=== PATIENT | male | born 1965 | race Caucasian/White ===

== ENCOUNTER → 2023-12-22 | Outpatient (CLI) | payer OTHER, SELFPAY ==
--- NOTE | 2023-12-22 08:00 | MRI_ITS ---
STUDY: MR PROSTATE GLAND/ PELVIS WITH T WITHOUT CONTRAST REASON FOR EXAM: Male, 58 years old. elevated PSA psa 16 TECHNIQUE: Standardized fat and water weighted pulse sequences were obtained in all 3 orthogonal planes, pre-and post contrast administration. IV 17cc clariscan was administered for the contrast portion of the examination. COMPARISON: None. FINDINGS: Prostate gland volume/size: 5.23 x 4.14 x 4.81 cm, which is mildly enlarged. Anterior fibromuscular stroma: Normal Peripheral zone: Diffusely heterogeneous and nodular with small intermixed cysts, with a similar appearance in the central and transitional zones. Findings are compatible with BPH. Central zone: Diffusely heterogeneous and nodular with small intermixed cysts, with a similar appearance in the central and transitional zones. Findings are compatible with BPH. Transitional zone: Low signal nonenhancing nodule in the posterior and left side of the transitional zone measures 1.31 cm in diameter and demonstrates bright diffusion weighted signal and dark ADC map signal which is an intermediate/equivocal finding. BPH or nodular prostatitis can present in this manner as well as necrotic poorly vascularized malignancy. See image #16/32 series 10. Diffusely heterogeneous and nodular with small intermixed cysts, with a similar appearance in the central and transitional zones. Findings are compatible with BPH. Prostate capsule: Intact Seminal vesicles: Normal bilaterally Pelvic sidewall lymphadenopathy: No lymphadenopathy is present. Bony structures: Appearance of islands of red marrow in the anterior columns of the bilateral acetabular regions with some surrounding enhancement seen on the postcontrast study, see image 16/32 series 10. However on the standard images no lytic or blastic process is visualized. Correlation with nuclear medicine bone scan or PET/CT is recommended to determine if there is any early malignancy in these regions. The remaining bony structures are unremarkable. Normal urinary bladder. Normal visualized small intestine. Normal visualized colon. There is no pelvic fluid. There is no pelvic mass lesion or lymphadenopathy. Normal abdominal wall. MRI/Pelvis W/WO Contrast IMPRESSION: 1. Transitional zone: Low signal nonenhancing nodule in the posterior and left side of the transitional zone measures 1.31 cm in diameter and demonstrates bright diffusion weighted signal and dark ADC map signal which is an intermediate/equivocal finding. BPH or nodular prostatitis can present in this manner as well as necrotic poorly vascularized malignancy. See image #16/32 series 10. 2. PI-RADS 3: intermediate (the presence of clinically significant cancer is equivocal) 3. Correlation with prostate PET/CT exam or targeted biopsy of prostate tissue with definitive pathologic diagnosis is recommended. 4. Bony structures: Appearance of islands of red marrow in the anterior columns of the bilateral acetabular regions with some surrounding enhancement seen on the postcontrast study, see image 16/32 series 10. However on the standard images no lytic or blastic process is visualized. Correlation with nuclear medicine bone scan or PET/CT is recommended to determine if there is any early malignancy in these regions. The remaining bony structures are unremarkable. Reference information: Normal prostate tissue Benign prostatic hypertrophy cancer/tumor - low signal peripheral , transitional, and central zones malignancy appears as bright on DWI and low signal on ADC map Prostate imaging-reporting and data system (PI-RADS) PI-RADS 1: very low (clinically significant cancer is highly unlikely to be present) PI-RADS 2: low (clinically significant cancer is unlikely to be present) PI-RADS 3: intermediate (the presence of clinically significant cancer is equivocal) PI-RADS 4: high (clinically significant cancer is likely to be present) PI-RADS 5: very high (clinically significant cancer is highly likely to be present) PI-RADS X: component of exam technically inadequate or not performed Prostate malignancy distribution: Peripheral zone: 70-80% Transitional zone: 10-20% Central zone: 5% or less Electronically Signed: Jorden Waddell MD at 17:24 EDT ,
--- OUTSIDE RECORDS SUMMARY | 2023-12-22 08:19 | XMS RPT_ITS | CCD ---
Author Organization [facility] Care Team Providers Care Cleaning Maid Name Role Phone PARKER OBYLE MD Attending Unavailable PARKER BOYLE MD Admitting Unavailable PARKER BOYLE MD Primary Care Unavailable DINO MILTON MD Attending Unavailabl e DINO MILTON MD Admitting Unavailabl e PARKER BOYLE MD Consulting Unavailable DINO MILTON MD Primary Care Unavailabl e PROVIDER, UNKNOWN Consulting Unavailable PROVIDER, UNKNOWN Consulting Unavailable PROVIDER, UNKNOWN Consulting Unavailable PARKER BOYLE MD Attending Unavailable PARKER BOYLE MD Primary Care Unavailable PARKER BOYLE MD Admitting Unavailable PARKER BOYLE MD Consulting Unavailable PARKER BOYLE MD Attending Unavailable LATPARKER DE LA FUENTE MD Admitting Unavailable PARKER BOYLE MD Primary Care Unavailable PROVIDER, UNKNOWN Consulting Unavailable PROVIDER, UNKNOWN Consulting Unavailable PROVIDER, UNKNOWN Consulting Unavailable PARKER BOYLE MD Consulting Unavailable PARKER BOYLE MD Attending Unavailable PARKER BOYLE MD Primary Care Unavailable PARKER BOYLE MD Admitting Unavailable PROVIDER, UNKNOWN Consulting Unavailable PROVIDER, UNKNOWN Consulting Unavailable PROVIDER, UNKNOWN Consulting Unavailable PARKER BOYLE MD Attending Unavailable PARKER BOYLE MD Primary Care Unavailable PARKER BOYLE MD Admitting Unavailable MIGUELANGEL NELSON MD Consulting Unavailable PROVIDER, UNKNOWN Consulting Unavailable PROVIDER, UNKNOWN Consulting Unavailable PARKER BOYLE MD Consulting Unavailable PARKER BOYLE MD Attending Unavailable PARKER BOYLE MD Primary Care Unavailable PARKER BOYLE MD Admitting Unavailable PROVIDER, UNKNOWN Consulting Unavailable PROVIDER, UNKNOWN Consulting Unavailable PROVIDER, UNKNOWN Consulting Unavailable PARKER BOYLE MD Attending Unavailable PARKER BOYLE MD Admitting Unavailable PARKER BOYLE MD Consulting Unavailable PARKER BOYLE MD Primary Care Unavailable PROVIDER, UNKNOWN Consulting Unavailable PROVIDER, UNKNOWN Consulting Unavailable PROVIDER, UNKNOWN Consulting Unavailable PARKER BOYLE MD Consulting Unavailable PARKER BOYLE MD Attending Unavailable PARKER BOYLE MD Primary Care Unavailable PARKER BOYLE MD Admitting Unavailable PROVIDER, UNKNOWN Consulting Unavailable PROVIDER, UNKNOWN Consulting Unavailable PROVIDER, UNKNOWN Consulting Unavailable PARKER BOYLE MD Attending Unavailable LATSUDHAKAR, PARKER DRAKE Admitting Unavailable PARKER BOYLE MD Primary Care Unavailable PARKER BOYLE MD Attending Unavailable PARKER BOYLE MD Primary Care Unavailable PARKER BOYLE MD Consulting Unavailable PARKER BOYLE MD Admitting Unavailable PROVIDER, UNKNOWN Consulting Unavailable PROVIDER, UNKNOWN Consulting Unavailable PROVIDER, UNKNOWN Consulting Unavailable Allergies Allergy Classification Reported Allergen(s) Allergy Type Date of Onset Reaction(s) Facility (1 source) Nitroglycerin Drug Allergy [facility] Repository Problems Active Problems Problem Classification Problem Date Documented Date Episodic/Chronic Diabetes mellitus without complication (4 sources) Type 2 diabetes mellitus without complications; Translations: [Type 2 diabetes mellitus without complications] Onset: 05-10-2023 Chronic Disorders of lipid metabolism (5 sources) Hyperlipidemia, unspecified; Translations: [Mixed hyperlipidemia] Onset: 01-02-2023 Chronic Essential hypertension (1 source) Essential (primary) hypertension; Translations: [Essential (primary) hypertension] Onset: 12-13-2023 Chronic Genitourinary symptoms and ill-defined conditions (1 source) Unspecified symptoms and signs involving the genitourinary system; Translations: [Unspecified symptoms and signs involving the genitourinary system] Onset: 12-13-2023 Episodic Other screening for suspected conditions (not mental disorders or infectious disease) (1 source) Elevated prostate specific antigen [PSA]; Translations: [Elevated prostate specific antigen [PSA]] Onset: 10-29-2023 Episodic Past or Other Problems Problem Classification Problem Date Documented Date Episodic/Chronic Fluid and electrolyte disorders (3 sources) Hyperosmolality and hypernatremia; Translations: [Hyperosmolality and hypernatremia] Onset: 08-12-2023 Episodic Other liver diseases (1 source) Abnormal levels of other serum enzymes; Translations: [Abnormal levels of other serum enzymes] Onset: 01-02-2023 Episodic Results Test Name Value Interpretation Reference Range Facility URINE CULTURE [CCL]on 2023 Bacteria identified Cx Nom (U) URCUL See Results Below See Below CULTURE, URINE ENTEROCOCCUS FAECALIS >=100,000 CFU/ml Enterococcus faecalis Cephalosporins, clindamycin, and TMP-SMX are not effective for the treatment of ORGANISM: ENTEROCOCCUS FAECALIS ANTIBIOTIC NEGIN DILUTN NEGIN INTERP Ampicillin <=2 Susceptible Vancomycin 1 Susceptible Nitrofurantoin <=16 Susceptible This test was developed and its performance characteristics determined by the [facility]'s [facility] [place] ([facility]). It has not been cleared or approved by the FDA. [facility] is regulated under CLIA as qualified to perform high-complexity testing. This test is used for clinical purposes. It should not be regarded as investigational or for research. SOURCE: Urine (Nonspecific) [facility] [address] [place] [address] Ward Longoria III, M.D. [id number] SEND TO IC YES Normal [facility] Comment on above: Performed By: #### [id number] #### [facility],[address] [place] [address] Bacteria Ur Culton 4 Bacteria identified Cx Nom (U) ORGANISM ID: 1 >=100,000 CFU/ml Enterococcus faecalis Cephalosporins, clindamycin, and TMP-SMX are not effective for the treatment of enterococcal infections. ORGANISM ID: 1 (ENTEROCOCCUS FAECALIS) ------ ANTIBIOTIC INTERPRETATION NEGIN STATUS REFERENCE RANGE ------ Ampicillin S <=2 F Susceptible <=8 , Resistant >8 Vancomycin S 1 F Susceptible <=4 , Intermediate >4 , Resistant >16 Nitrofurantoin S <=16 F Susceptible <=32 , Intermediate >32 , Resistant >64 Abnormal [facility] Comment on above: Performed By: #### [id number] #### [facility] CLIA [id number] [address] [place] [address] STATES OF [facility] URINALYSIS WITH MICROSCOPYon 12-13-2023 Amorphous NONE Normal [facility] Comment on above: Performed By: #### [id number] #### [facility],[address] [place] [address] 04542 Bacteria 1+ Normal [facility] Comment on above: Performed By: #### [id number] #### [facility],[address] [place] [address] 55613 Bilirubin Ql (U) Negative Normal NORMAL: NEGATIVE [facility] Comment on above: Performed By: #### [id number] #### [facility],[address] [place] [address] 70161 Casts NONE Normal [facility] Comment on above: Performed By: #### [id number] #### [facility],[address] [place] [address] 62655 Clarity (U) very cloudy Normal NORMAL: CLEAR [facility] Comment on above: Performed By: #### [id number] #### [facility],[address] [place] [address] 27144 Color (U) yellow Normal NORMAL: YELLOW [facility] Comment on above: Performed By: #### [id number] #### [facility],[address] [place] [address] 05539 Crystals LM Nom (Urine sed) NONE Normal [facility] Comment on above: Performed By: #### [id number] #### [facility],[address] [place] [address] 02998 Epi Cells NONE Normal [facility] Comment on above: Performed By: #### [id number] #### [facility],[address] [place] [address] 46710 Glucose Ql (U) NORM Normal NORMAL: NORMAL [facility] Comment on above: Performed By: #### [id number] #### [facility],[address] [place] [address] 09330 Hemoglobin Ql (U) 50 Abnormal NORMAL: NEGATIVE [facility] Comment on above: Performed By: #### [id number] #### [facility],[address] [place] [address] 65165 Ketone Negative Normal NORMAL: NEGATIVE [facility] Comment on above: Performed By: #### [id number] #### [facility],[address] [place] [address] 83342 Leukocytes 500 Abnormal NORMAL: NEGATIVE [facility] Comment on above: Result Comment: URINE MICROSCOPIC Performed By: #### 2 [id number] #### [facility],[address] [place] [address] 81260 Mucous NONE Normal [facility] Comment on above: Performed By: #### [id number] #### [facility],[address] [place] [address] 45054 Nitrite Ql (U) Negative Normal NORMAL: NEGATIVE [facility] Comment on above: Performed By: #### [id number] #### [facility],[address] [place] [address] 79401 pH (U) 6 [pH] Normal NORMAL: 5.0-8.0 [facility] Comment on above: Performed By: #### [id number] #### [facility],[address] [place] [address] 88433 Protein Ql (U) 30 Abnormal NORMAL: NEGATIVE [facility] Comment on above: Performed By: #### [id number] #### [facility],[address] [place] [address] 64693 Rbc 0-5 Normal 0-3 / hpf [facility] Comment on above: Performed By: #### [id number] #### [facility],[address] [place] [address] Sp [place] 1.020 Normal NORMAL: 1.010-1.030 [facility] Comment on above: Performed By: #### [id number] #### [facility],[address] [place] [address] Specimen Type R Normal [facility] Comment on above: Performed By: #### [id number] #### [facility],[address] [place] [address] URINALYSIS WITH MICROSCOPY Normal [facility] Comment on above: Result Comment: URINALYSIS Performed By: #### 2 [id number] #### [facility],[address] [place] [address] Urobilinog NORM Normal NORMAL: NORMAL [facility] Comment on above: Performed By: #### [id number] #### [facility],[address] [place] [address] WBC (U) [#/Vol] /uL Normal 0-5 / hpf [facility] Comment on above: Performed By: #### [id number] #### [facility],[address] [place] [address] Yeast NONE Normal [facility] Comment on above: Performed By: #### [id number] #### [facility],[address] [place] [address] PSA, FREE [CCL]on 10-30-2023 PSA, Diagnostic 3.76 ng/mL High <2.60 [facility] Comment on above: Result Comment: Total PSA test methodolo gy used is the Electrochemiluminescence Immunoassay by [employer]. Total PSA values by differing methodologies cannot be interchanged. For an individual patient, the significance of a PSA level should be interpreted in a broad clinical context, including age, race, family history, digital rectal exam, prostate size, results of prior testing (prostate biopsy, free PSA, PCA3), and use of 5-alpha reductase inhibitors. Considering the high incidence of asymptomatic cancer in the general population that may not pose an ultimate risk to a patient, the decision to recommend urological evaluation or prostate biopsy should be individualized after consideration of all these factors. REFERENCE: Candelario Landin M.D., M.P.H., Devendra Lopez M.D., Ph.D., Anselmo Estrada M.D., Liz Ramirez, M.P.H., Kaitlin Alvarado Sc.D. Effect of Verification Bias on Screening for Prostate Cancer by Measurement of Prostatic Specific Antigen. N Engl J Med 2003,349:335-42. Performed By: #### 2 [id number] #### [address] [address] PSA, Percent Free 16 % Normal [facility] Comment on above: Result Comment: Total and free PSA test methodology used is the Electrochemiluminescence Immunoassay by [employer]. Total or free PSA values by differing methodologies cannot be interchanged. The below table lists the probability of finding prostate cancer upon needle biopsy, for men 50 years or older and total PSA concentrations from 4.0-10.0 ng/mL. Results should be interpreted within the broader clinical context. Free PSA(%) 50-59 years 60-69 years >69 years <11 49.2% 57.5% 64.5% 11-18 26.9% 33.9% 40.8% 19-25 18.3% 23.9% 29.7% >25 9.1% 12.2% 15.8% [place] [address] Ward Longoria III, M.D. [id number] Performed By: #### 2 [id number] #### [address] [address] CPKon 10-29-2023 CPK 144 U/L Normal 39 - 308 [facility] Comment on above: Performed By: #### [id number] #### [facility],[address] [place] [address] 81704 Free PSA [Mass/Vol]on 2023 Free PSA/Total PSA [Mass fraction] 16 % Normal [facility] Comment on above: Order Comment: Specimen Type: BLOOD SPEC IM Ordering Facility: [facility] Address: [address] [place], [place] [address] Result Comment: Tota l and free PSA test methodology used is the Electrochemiluminescence Immunoassay by [employer]. Total or free PSA values by differing methodologies cannot be interchanged. The below table lists the probability of finding prostate cancer upon needle biopsy, for men 50 years or older and total PSA concentrations from 4.0-10.0 ng/mL. Results should be interpreted within the broader clinical context. Free PSA(%) 50-59 years 60-69 years >69 years <11 49.2% 57.5% 64.5% 11-18 26.9% 33.9% 40.8% 19-25 18.3% 23.9% 29.7% >25 9.1% 12.2% 15.8% Performed By: #### 1 0886-0 #### [facility] CLIA [id number] [address] [place] [address] [place] Prostate specific Ag [Mass/Vol] 3.76 ng/mL High <2.60 [facility] Comment on above: Order Comment: Specimen Type: BLOOD SPEC IMEN Ordering Facility: [facility] Address: [address] [place], [place] [id number] Result Comment: Tota l PSA test methodology used is the Electrochemiluminescence Immunoassay by [employer]. Total PSA values by differing methodologies cannot be interchanged. For an individual patient, the significance of a PSA level should be interpreted in a broad clinical context, including age, race, family history, digital rectal exam, prostate size, results of prior testing (prostate biopsy, free PSA, PCA3), and use of 5-alpha reductase inhibitors. Considering the high incidence of asymptomatic cancer in the general population that may not pose an ultimate risk to a patient, the decision to recommend urological evaluation or prostate biopsy should be individualized after consideration of all these factors. REFERENCE: Candelario Landin M.D., M.P.H., Devendra Lopez M.D., Ph.D., Anselmo Estrada M.D., Liz Ramirez M.PSidneyH., Kaitlin Alvarado Sc.D. Effect of Verification Bias on Screening for Prostate Cancer by Measurement of Prostatic Specific Antigen. N Engl J Med 2003,349:335-42. Performed By: #### 1 0886-0 #### [facility] CLIA [id number] [address] [place] [address] OF [facility] HEPATIC FUNCTION PANELon Albumin [Mass/Vol] 3.7 g/dL Normal 3.4 - 5.0 [facility] Comment on above: Performed By: #### [id number] #### [place] [address] ALK PHOS 41 U/L Low 46 - 116 [facility] Comment on above: Performed By: #### [id number] #### [place] [address] ALT [Catalytic activity/Vol] 32 U/L Normal 16 - 63 [facility] Comment on above: Performed By: #### [id number] #### [place] [address] AST [Catalytic activity/Vol] 21 U/L Normal 15 - 37 [facility] Comment on above: Performed By: #### [id number] #### [place] [address] Bilirubin [Mass/Vol] 0.6 mg/dL Normal 0.2 - 1.0 [facility] Comment on above: Performed By: #### [id number] #### [place] [address] Bilirubin.direct [Mass/Vol] 0.1 mg/dL Normal 0.0 - 0.2 [facility] Comment on above: Performed By: #### [id number] #### [place] [address] Hepatic function 2000 panel Normal [facility] Comment on above: Result Comment: HEPATIC FUNCTION PROFILE Performed By: #### 2 [id number] #### [facility],[address] [place] [address] 62761 Protein [Mass/Vol] 7.0 g/dL Normal 6.4 - 8.2 [facility] Comment on above: Performed By: #### [id number] #### [facility],[address] [place] [address] 22128 LIPID PROFILEon 10-29-2023 Cholesterol [Mass/Vol] 129 mg/dL Normal 0 - 240 [facility] Comment on above: Performed By: #### [id number] #### [facility],[address] [place] [address] 53874 Cholesterol in HDL [Mass/Vol] 38 mg/dL Low 40 - 60 [facility] Comment on above: Performed By: #### [id number] #### [facility],[address] [place] [address] 15236 Cholesterol in LDL [Mass/Vol] 50 mg/dL Normal 0 - 129 [facility] Comment on above: Performed By: #### [id number] #### [facility],[address] [place] [address] 22374 Cholesterol.tota l/Cholesterol in HDL [Mass ratio] 3.4 {ratio} Normal 0.0 - 5.0 [facility] Comment on above: Performed By: #### [id number] #### [facility],[address] [place] [address] 05577 Lipid 1996 panel Normal [facility] Comment on above: Result Comment: LIPID PROFILE Performed By: #### 2 [id number] #### [facility],[address] [place] [address] 98204 Triglyceride [Mass/Vol] 204 mg/dL High 0 - 150 [facility] Comment on above: Performed By: #### [id number] #### [facility],[address] [place] [address] BMP with eGFRon 08-12-2023 AGE 58 years Normal [facility] Comment on above: Performed By: #### [id number] #### [facility],[address] [place], [place] [id number] Anion gap [Moles/Vol] 10 mmol/L Normal 10 - 20 [facility] Comment on above: Performed By: #### [id number] #### [facility],[address] [place], [place] [id number] BMP with eGFR Normal [facility] Comment on above: Result Comment: BASIC METABOLIC PANEL Performed By: #### 2 [id number] #### [facility],[address] [place], [place] [id number] Calcium [Mass/Vol] 9.1 mg/dL Normal 8.5 - 10.1 [facility] Comment on above: Performed By: #### [id number] #### [facility],[address] [place] [address] 55822 Chloride [Moles/Vol] 104 mmol/L Normal 98 - 107 [facility] Comment on above: Performed By: #### [id number] #### [facility],[address] [place] [address] 61756 CO2 [Moles/Vol] 29.4 mmol/L Normal 21.0 - 32.0 [facility] Comment on above: Performed By: #### [id number] #### [facility],[address] [place] [address] 24589 Creatinine [Mass/Vol] 0.82 mg/dL Normal 0.70 - 1.30 [facility] Comment on above: Performed By: #### [id number] #### [facility],[address] [place] [address] 58647 GFR/1.73 sq M.predicted among non-blacks MDRD (S/P/Bld) [Vol rate/Area] mL/min/{1.73_m2} Normal 60 - 999 [facility] Comment on above: Performed By: #### [id number] #### [facility],[address] [place] [address] Result Comment: ACCO RDING TO THE NATIONAL KIDNEY DISEASE EDUCATION PROGRAM(NKDE), A NORMAL eGFR IS A VALUE GREATER THAN OR EQUAL TO 60 ML/MIN/1.73 SQ METERS. CHRONIC KIDNEY DISEASE: <60mL/MIN/1.73 SQ METERS KIDNEY FAILURE: <15mL/MIN/1.73 SQ METERS THIS TEST SHOULD ONLY BE USED FOR PATIENTS 18 YEARS OF AGE AND OLDER. Glucose [Mass/Vol] 114 mg/dL High 74 - 106 [facility] Comment on above: Performed By: #### [id number] #### [place] [address] Potassium [Moles/Vol] 3.7 mmol/L Normal 3.5 - 5.1 [facility] Comment on above: Performed By: #### [id number] #### [facility],[address] [place] [address] Sodium [Moles/Vol] 140 mmol/L Normal 136 - 145 [facility] Comment on above: Performed By: #### [id number] #### [place] [address] Urea nitrogen [Mass/Vol] 18 mg/dL Normal 7 - 18 [facility] Comment on above: Performed By: #### [id number] #### [place] [address] HEMOGLOBIN A1C (POM)on 08-11 Glucose [Mass/Vol] 114.0 mg/dL High 0.0 - 0.0 [facility] Comment on above: Result Comment: BLDoHEMOGLOBIN A1C REFER ENCE RANGESBLDo Suggested Diagnosis HbA1c(%) HbA1C (mmol/mol Diabetic >/=6.5 >/=48 Prediabetes 5.7 - 6.4 39 - 47 Normal <5.7 <39 Performed By: #### 2 71511 #### [address] [address] HbA1c (Bld) [Mass fraction] 5.6 % Normal 0.0 - 6.5 [facility] Comment on above: Performed By: #### [id number] #### [facility],[address] [place] [address] 40008 LIPID PROFILEon 08-12-2023 Cholesterol [Mass/Vol] 143 mg/dL Normal 0 - 240 [facility] Comment on above: Performed By: #### [id number] #### [facility],[address] [place] [address] 57020 Cholesterol in HDL [Mass/Vol] 35 mg/dL Low 40 - 60 [facility] Comment on above: Performed By: #### [id number] #### [facility],[address] [place] [address] 58942 Cholesterol in LDL [Mass/Vol] 87 mg/dL Normal 0 - 129 [facility] Comment on above: Performed By: #### [id number] #### [facility],[address] [place] [address] 14151 Cholesterol.tota l/Cholesterol in HDL [Mass ratio] 4.1 {ratio} Normal 0.0 - 5.0 [facility] Comment on above: Performed By: #### [id number] #### [facility],[address] [place] [address] 70331 Lipid 1996 panel Normal [facility] Comment on above: Result Comment: LIPID PROFILE Performed By: #### 2 [id number] #### [facility],[address] [place] [address] 37331 Triglyceride [Mass/Vol] 103 mg/dL Normal 0 - 150 [facility] Comment on above: Performed By: #### [id number] #### [facility],[address] [place] [address] 25209 CMP with eGFRon 05-10-2023 AGE 58 years Normal [facility] Comment on above: Performed By: #### [id number] #### [facility],[address] [place] [address] 03774 Albumin [Mass/Vol] 3.5 g/dL Normal 3.4 - 5.0 [facility] Comment on above: Performed By: #### [id number] #### [facility],[address] [place] [address] 85504 Albumin/Globulin [Mass ratio] 1.0 {ratio} Normal 0.9 - 1.6 [facility] Comment on above: Performed By: #### [id number] #### [facility],[address] [place] [address] 92077 ALK PHOS 43 U/L Low 46 - 116 [facility] Comment on above: Performed By: #### [id number] #### [facility],[address] [place] [address] 95270 ALT [Catalytic activity/Vol] 34 U/L Normal 16 - 63 [facility] Comment on above: Performed By: #### [id number] #### [facility],[address] [place] [address] 79497 Anion gap [Moles/Vol] 14 mmol/L Normal 10 - 20 [facility] Comment on above: Performed By: #### [id number] #### [facility],[address] [place] [address] 51276 AST [Catalytic activity/Vol] 17 U/L Normal 15 - 37 [facility] Comment on above: Performed By: #### [id number] #### [facility],[address] [place] [address] 62505 B/C RATIO 20 ratio Normal 0 - 30 [facility] Comment on above: Performed By: #### [id number] #### [facility],[address] [place] [address] 01164 Bilirubin [Mass/Vol] 0.4 mg/dL Normal 0.2 - 1.0 [facility] Comment on above: Performed By: #### [id number] #### [facility],[address] [place] [address] 46596 Calcium [Mass/Vol] 8.8 mg/dL Normal 8.5 - 10.1 [facility] Comment on above: Performed By: #### [id number] #### [facility],[address] [place], [place] [id number] Chloride [Moles/Vol] 106 mmol/L Normal 98 - 107 [facility] Comment on above: Performed By: #### [id number] #### [facility],[address] [place], [place] [id number] CMP with eGFR Normal [facility] Comment on above: Result Comment: COMPREHENSIVE METABOLIC PANEL Performed By: #### 2 [id number] #### [facility],[address] [place] [address] CO2 [Moles/Vol] 29.8 mmol/L Normal 21.0 - 32.0 [facility] Comment on above: Performed By: #### [id number] #### [facility],[address] [place], [place] [id number] Creatinine [Mass/Vol] 0.85 mg/dL Normal 0.70 - 1.30 [facility] Comment on above: Performed By: #### [id number] #### [facility],[address] [place], [place] [id number] GFR/1.73 sq M.predicted among non-blacks MDRD (S/P/Bld) [Vol rate/Area] mL/min/{1.73_m2} Normal 60 - 999 [facility] Comment on above: Performed By: #### [id number] #### [facility],[address] [place] [address] Result Comment: ACCO RDING TO THE NATIONAL KIDNEY DISEASE EDUCATION PROGRAM(NKDE), A NORMAL eGFR IS A VALUE GREATER THAN OR EQUAL TO 60 ML/MIN/1.73 SQ METERS. CHRONIC KIDNEY DISEASE: <60mL/MIN/1.73 SQ METERS KIDNEY FAILURE: <15mL/MIN/1.73 SQ METERS THIS TEST SHOULD ONLY BE USED FOR PATIENTS 18 YEARS OF AGE AND OLDER. Globulin (S) [Mass/Vol] 3.4 g/dL Normal 1.5 - 3.8 [facility] Comment on above: Performed By: #### [id number] #### [facility],[address] [place] [address] 11098 Glucose [Mass/Vol] 99 mg/dL Normal 74 - 106 [facility] Comment on above: Performed By: #### [id number] #### [facility],[address] [place] [address] 35402 Potassium [Moles/Vol] 3.6 mmol/L Normal 3.5 - 5.1 [facility] Comment on above: Performed By: #### [id number] #### [facility],[address] [place] [address] 13273 Protein [Mass/Vol] 6.9 g/dL Normal 6.4 - 8.2 [facility] Comment on above: Performed By: #### [id number] #### [facility],[address] [place] [address] 76172 Sodium [Moles/Vol] 146 mmol/L High 136 - 145 [facility] Comment on above: Performed By: #### [id number] #### [facility],[address] [place] [address] 61718 Urea nitrogen [Mass/Vol] 17 mg/dL Normal 7 - 18 [facility] Comment on above: Performed By: #### [id number] #### [facility],[address] [place] [address] 15078 HEMOGLOBIN A1C (POM)on 05-09 Glucose [Mass/Vol] 108.3 mg/dL High 0.0 - 0.0 [facility] Comment on above: Result Comment: BLDoHEMOGLOBIN A1C REFER ENCE RANGESBLDo Suggested Diagnosis HbA1c(%) HbA1C (mmol/mol Diabetic >/=6.5 >/=48 Prediabetes 5.7 - 6.4 39 - 47 Normal <5.7 <39 Performed By: #### 2 79550 #### [facility],[address] [place] [address] 96985 HbA1c (Bld) [Mass fraction] 5.4 % Normal 0.0 - 6.5 [facility] Comment on above: Performed By: #### [id number] #### [facility],[address] [place] [address] 15181 LIPID PROFILEon 05-10-2023 Cholesterol [Mass/Vol] 138 mg/dL Normal 0 - 240 [facility] Comment on above: Performed By: #### [id number] #### [facility],[address] [place] [address] 33057 Cholesterol in HDL [Mass/Vol] 40 mg/dL Normal 40 - 60 [facility] Comment on above: Performed By: #### [id number] #### [facility],[address] [place] [address] 94671 Cholesterol in LDL [Mass/Vol] 75 mg/dL Normal 0 - 129 [facility] Comment on above: Performed By: #### [id number] #### [facility],[address] [place] [address] 63381 Cholesterol.tota l/Cholesterol in HDL [Mass ratio] 3.5 {ratio} Normal 0.0 - 5.0 [facility] Comment on above: Performed By: #### [id number] #### [facility],[address] [place] [address] 19739 Lipid 1996 panel Normal [facility] Comment on above: Result Comment: LIPID PROFILE Performed By: #### 2 73312 #### [facility],[address] [place] [address] 60044 Triglyceride [Mass/Vol] 114 mg/dL Normal 0 - 150 [facility] Comment on above: Performed By: #### [id number] #### [facility],[address] [place] [address] 83170 MICROALBUMIN RANDOM URINE W/ CREATININEon 05-10-2023 CREATININE UR 177.66 mg/dl Normal [facility] Comment on above: Result Comment: Microalbumin/Creat Ratio Performed By: #### 2 21341 #### [facility],[address] [place] [address] 95101 MICROALBUMIN UR 0.8 mg/dL Normal 0.1 - 25.1 [facility] Comment on above: Performed By: #### [id number] #### [facility],[address] [place] [address] 93066 UACR 5 mg/g Normal [facility] Comment on above: Performed By: #### [id number] #### [facility],[address] [place] [address] ANGIOGRAPHY CHESTon 04-16 Ct angiography chest w/contrast/nonco ntrast [place] [address] Patient: RAYMUNDO CARRION Phone#: : 1965 Age: 58 Gender: M Pt. Type: Out Account: [id number] Location: [facility] Ordering: DINO MILTON Exam Date: 04/16/2023/7:33 Family Phys: PARKER BOYLE Charge Code: [id number] Physician: Solano Order #: [id number] Dose#: 6.8 mGy PROCEDURE: CT ANGIOGRAPHY CHEST WITH CONTRAST COMPARISON: [facility], CT, CHEST PE W CON, 02/19/2022, 12:07. INDICATIONS: Ascending aorta enlargement TECHNIQUE: After obtaining the patient's consent, CT images were obtained with non-ionic intravenous contrast material. Multi-planar images were created to optimize visualization of vascular anatomy with MPR/MIPS and 3D imaging. All CT scans at this facility use dose modulation, iterative reconstruction, and/or weight based dosing when appropriate to reduce radiation dose to as low as reasonably achievable. IV CONTRAST: Omnipaque 350,100ml TOTAL DOSE: 6.8 CTDIvol(mGy) FINDINGS: VASCULATURE: Normal. No visible pulmonary arterial thrombus or attenuation. AORTA: Sinus of Valsalva 4.5 centimeters Sinotubular junction 2.9 centimeters Ascending aorta 3.9 centimeters. Aortic arch 2.9 centimeters. Descending aorta 2.6 centimeters. LUNGS: Normal. No visible pulmonary disease. RUTH: Normal. No mass or adenopathy. MEDIASTINUM: Normal. No mass or adenopathy. CARDIAC: Coronary artery calcification is present. PLEURA: Normal. No mass or effusion. CHEST WALL: Normal. No mass or axillary adenopathy. LIMITED ABDOMEN: Gallbladder is absent. Limited images of the upper abdomen are unremarkable. BONES: Degenerative changes of the spine are present. Sternotomy sutures are present. OTHER: Negative. Continued Report - Page 2 of 2 Patient: RAYMUNDO CARRION Phone#: : 1965 Age: 58 Gender: M Pt. Type: Out Account: [id number] Location: 052 Ordering: DINO MILTON Exam Date: 04/16/2023/7:33 Family Phys: BUTROS LATOUF Charge Code: [id number] Physician: Solano Order #: [id number] Dose#: 6.8 mGy CONCLUSION: 1. Maximum diameter of the ascending aorta is 3.9 centimeters. Diameter has increased since the prior exam of February 19, 2022 measuring 3.4 centimeters at that time. Dictated by: Lola Reich MD on 04/16/2023 at 14:35 Approved by: Lola Reich MD on 04/16/2023 at 14:47 Normal [facility] CV ECHO [facility] CV ECHO [place] [address] Patient: RAYMUNDO CARRION Phone#: : 1965 Age: 58 Gender: M Pt. Type: Out Account: [id number] Location: 052 Ordering: DINO MILTON Exam Date: 04/16/2023/8:00 Family Phys: BUTROS LATOUF Charge Code: [id number] Physician: Solano Order #: [id number] Dose#: PROCEDURE: ECHOCARDIOGRAM WITH DOPPLER AND COLOR FLOW HISTORY: open heart INDICATIONS: Aortic root dilation COMPARISON: None. TECHNIQUE: A 2-D ultrasound, color spectral Doppler and M-mode evaluation of the heart and great vessels. PATIENT MEASUREMENTS: Height (in.): 69 BSA: 2.0 Weight (lbs.): 183 BP: 141/84 [employer] Supervisor: ABDIRIZAK M MODE 2D MEASUREMENTS AND CALCULATIONS: LVIDd: 5.2 cm LVIDs: 4.0 cm IVSd: 0.8 cm LVPWd: 0.8 cm LVOT diam: 2.2 cm FS: 18 % Ao Root diam: 4.20 cm LA diam: 4.4 cm LA Volume Index: 37 ml/m2 LA A4 Area: 20.55 cm2 RA A4 Area: 24.1 cm2 RVDd: 3.81 cm TAPSE: 19 mm DOPPLER MEASUREMENTS AND CALCULATIONS MITRAL MV E MAX martin: 0.81 m/s MV A MAX martin: 0.58 m/s MV E-A ratio: 1.41 ERO: 0.18 cm2 Reg Vol 39.01 ml Lat Peak E' Martin 9 cm/sec Septal Peak E' MARTIN 6 cm/sec Continued Report - Page 2 of 3 Patient: RAYMUNDO CARRION Phone#: : 1965 Age: 58 Gender: M Pt. Type: Out Account: [id number] Location: 2 Ordering: DINO MILTON Exam Date: 04/16/2023/8:00 Family Phys: PARKER MONTANA Charge Code: [id number] Physician: Solano Order #: [id number] Dose#: E/E' lateral 9 E/E' medial 14 AORTIC Ao V2 max: 0.98 m/s Ao max P.81 mm[Hg] LV V1 Max 0.90 m/s LV V1 Max PG 3.24 mm[Hg] PULMONIC PA V2 Max 0.86 m/s PA Max PG 2.94 mm[Hg] TRICUSPID TR Max Martin 2.52 m/s TR max PG 25.48 mm[Hg] RVSP 28 mm Hg 2D/M-MODE AND COLOR FLOW LEFT VENTRICLE: Left ventricle is normal in size and thickness. There is prominent sigmoid septum. Systolic ejection fraction is 55-60%. There are no regional wall motion abnormality seen. WALL MOTION: 1 - Basal anterior: Normal. 7 - Mid anterior: Normal. 13 - Apical anterior: Normal. 2 - Basal anteroseptal: Normal. 8 - Mid anteroseptal: Normal. 14 - Apical septal: Normal. 3 - Basal inferoseptal: Normal. 9 - Mid inferoseptal: Normal. 15 - Apical inferior: Normal. 4 - Basal inferior: Normal. 10-Mid inferior: Normal. 16 - Apical lateral: Normal. 5 - Basal inferolateral: Normal. 11-Mid inferolateral: Normal. 6 - Basal anterolateral: Normal. 12-Mid anterolateral: Normal. RIGHT VENTRICLE: Right ventricle is mildly enlarged with low normal systolic function LEFT ATRIUM: Left atrium is mildly enlarged RIGHT ATRIUM: Right atrium is moderately enlarged. ATRIAL SEPTUM: There is possible patent Reyes ovale by Doppler. MITRAL VALVE: Mitral valve appears normal in structure. There is mild regurgitation and no stenosis seen. TRICUSPID VALVE: Tricuspid valve appears normal structure. There is mild regurgitation and no stenosis seen. AORTIC VALVE: Aortic valve is trileaflet. There is trivial regurgitation and no stenosis seen. PULMONIC VALVE: Pulmonic valve is normal structure. There is trivial regurgitation and no stenosis seen. AORTIC ROOT: Aortic root is dilated 4.2 cm. Proximal ascending aorta is dilated at 3.9 cm AORTIC ARCH: Inadequately visualized DESC THORACIC AORTA: Inadequately visualized. Doppler shows no significant regurgitation or stenosis IVC/SVC: IVC is normal in size with more than 50% collapse of inspiration. Estimated atrial pressure is 3 mm Hg. Continued Report - Page 3 of 3 Patient: RAYMUNDO CARRION Phone#: : 1965 Age: 58 Gender: M Pt. Type: Out Account: [id number] Location: 2 Ordering: DINO MILTON Exam Date: 04/16/2023/8:00 Family Phys: PARKER MONTANA Charge Code: [id number] Physician: Solano Order #: [id number] Dose#: PULMONARY VEINS: Systolic flow blunting. PERICARDIUM: There is no pericardial effusion seen. CONCLUSION: 1. Left ventricle is normal in size and thickness. There is prominent sigmoid septum. Systolic ejection fraction 55-60% with normal wall motion. 2. Left atrium is mildly enlarged. Right atrium is moderately enlarged. 3. There is mild mitral valve regurgitation seen 4. There is mild tricuspid valve regurgitation seen. 5. Aortic valve is trileaflet. There is trivial regurgitation and no stenosis seen. 6. Right ventricle is mildly enlarged with normal systolic function. 7. Aortic root is dilated 4.2 cm. Proximal ascending aorta is dilated at 3.9 cm. 8. Estimated right ventricular systolic pressure is 28 mm Hg. Dictated by: DINO MILTON MD on 04/16/2023 at 11:36 Approved by: DINO MILTON MD on 04/16/2023 at 11:52 Normal [facility] BMP with eGFRon 04-14-2023 AGE 58 years Normal [facility] Comment on above: Performed By: #### [id number] #### [facility],[address] [place] [address] 63482 Anion gap [Moles/Vol] 11 mmol/L Normal 10 - 20 [facility] Comment on above: Performed By: #### [id number] #### [facility],[address] [place] [address] 72750 BMP with eGFR Normal [facility] Comment on above: Result Comment: BASIC METABOLIC PANEL Performed By: #### 2 91147 #### [address] [address] Calcium [Mass/Vol] 9.1 mg/dL Normal 8.5 - 10.1 [facility] Comment on above: Performed By: #### [id number] #### [facility],[address] [place] [address] 10849 Chloride [Moles/Vol] 106 mmol/L Normal 98 - 107 [facility] Comment on above: Performed By: #### [id number] #### [address] [address] CO2 [Moles/Vol] 29.1 mmol/L Normal 21.0 - 32.0 [facility] Comment on above: Performed By: #### [id number] #### [facility],[address] [place] [address] 65770 Creatinine [Mass/Vol] 0.87 mg/dL Normal 0.70 - 1.30 [facility] Comment on above: Performed By: #### [id number] #### [facility],[address] [place] [address] 50421 GFR/1.73 sq M.predicted among non-blacks MDRD (S/P/Bld) [Vol rate/Area] mL/min/{1.73_m2} Normal 60 - 999 [facility] Comment on above: Performed By: #### [id number] #### [facility],[address] [place] [address] 82631 Result Comment: ACCO RDING TO THE NATIONAL KIDNEY DISEASE EDUCATION PROGRAM(NKDE), A NORMAL eGFR IS A VALUE GREATER THAN OR EQUAL TO 60 ML/MIN/1.73 SQ METERS. CHRONIC KIDNEY DISEASE: <60mL/MIN/1.73 SQ METERS KIDNEY FAILURE: <15mL/MIN/1.73 SQ METERS THIS TEST SHOULD ONLY BE USED FOR PATIENTS 18 YEARS OF AGE AND OLDER. Glucose [Mass/Vol] 107 mg/dL High 74 - 106 [facility] Comment on above: Performed By: #### [id number] #### [facility],[address] [place] [address] 67833 Potassium [Moles/Vol] 3.5 mmol/L Normal 3.5 - 5.1 [facility] Comment on above: Performed By: #### [id number] #### [facility],[address] [place] [address] 43539 Sodium [Moles/Vol] 143 mmol/L Normal 136 - 145 [facility] Comment on above: Performed By: #### [id number] #### [facility],[address] [place] [address] 48635 Urea nitrogen [Mass/Vol] 18 mg/dL Normal 7 - 18 [facility] Comment on above: Performed By: #### [id number] #### [facility],[address] [place] [address] 75250 HGB A1C [CCL]on 01-05-2023 HbA1c (Bld) [Mass fraction] 5.4 % Normal 4.3-5.6 [facility] Comment on above: Result Comment: [place] Diabetes Associ ation guidelines indicate that patients with HgbA1c in the range 5.7-6.4% are at increased risk for development of diabetes, and intervention by lifestyle modification may be beneficial. HgbA1c greater or equal to 6.5% is considered diagnostic of diabetes. Performed By: #### 2 [id number] #### [place] [id number] Hemoglobin A0 108 mg/dL Normal [facility] Comment on above: Result Comment: eAG: (Estimated average glucose) is a calculated value from HgbA1c and is new accounts banking representative of the average blood glucose level in the last 2-3 month period. [facility] [employer] [address] [place] [address] Ward Longoria III, M.D. [id number] Performed By: #### 2 23869 #### [place] [id number] CMP with eGFRon 01-02-2023 AGE 57 years Normal [facility] Comment on above: Performed By: #### [id number] #### [address] [address] Albumin [Mass/Vol] 3.6 g/dL Normal 3.4 - 5.0 [facility] Comment on above: Performed By: #### [id number] #### [address] [address] Albumin/Globulin [Mass ratio] 1.1 {ratio} Normal 0.9 - 1.6 [facility] Comment on above: Performed By: #### [id number] #### [address] [address] ALK PHOS 39 U/L Low 46 - 116 [facility] Comment on above: Performed By: #### [id number] #### [address] [address] ALT [Catalytic activity/Vol] 43 U/L Normal 16 - 63 [facility] Comment on above: Performed By: #### [id number] #### [facility],[address] [place] [address] 22741 Anion gap [Moles/Vol] 11 mmol/L Normal 10 - 20 [facility] Comment on above: Performed By: #### [id number] #### [facility],[address] [place], [place] [id number] AST [Catalytic activity/Vol] 18 U/L Normal 15 - 37 [facility] Comment on above: Performed By: #### [id number] #### [place] [address] B/C RATIO 21 ratio Normal 0 - 30 [facility] Comment on above: Performed By: #### [id number] #### [address] [address] Bilirubin [Mass/Vol] 0.4 mg/dL Normal 0.2 - 1.0 [facility] Comment on above: Performed By: #### [id number] #### [address] [address] Calcium [Mass/Vol] 9.2 mg/dL Normal 8.5 - 10.1 [facility] Comment on above: Performed By: #### [id number] #### [facility],[address] [place] [address] 41417 Chloride [Moles/Vol] 106 mmol/L Normal 98 - 107 [facility] Comment on above: Performed By: #### [id number] #### [address] [address] CMP with eGFR Normal [facility] Comment on above: Result Comment: COMPREHENSIVE METABOLIC PANEL Performed By: #### 2 86145 #### [address] [address] CO2 [Moles/Vol] 30.6 mmol/L Normal 21.0 - 32.0 [facility] Comment on above: Performed By: #### [id number] #### [facility],[address] [place] [address] 39591 Creatinine [Mass/Vol] 0.90 mg/dL Normal 0.70 - 1.30 [facility] Comment on above: Performed By: #### [id number] #### [facility],[address] [place] [address] 73630 GFR/1.73 sq M.predicted among non-blacks MDRD (S/P/Bld) [Vol rate/Area] mL/min/{1.73_m2} Normal 60 - 999 [facility] Comment on above: Performed By: #### [id number] #### [facility],[address] [place] [address] 45632 Result Comment: ACCO RDING TO THE NATIONAL KIDNEY DISEASE EDUCATION PROGRAM(NKDE), A NORMAL eGFR IS A VALUE GREATER THAN OR EQUAL TO 60 ML/MIN/1.73 SQ METERS. CHRONIC KIDNEY DISEASE: <60mL/MIN/1.73 SQ METERS KIDNEY FAILURE: <15mL/MIN/1.73 SQ METERS THIS TEST SHOULD ONLY BE USED FOR PATIENTS 18 YEARS OF AGE AND OLDER. Globulin (S) [Mass/Vol] 3.3 g/dL Normal 1.5 - 3.8 [facility] Comment on above: Performed By: #### [id number] #### [facility],[address] [place] [address] 80902 Glucose [Mass/Vol] 98 mg/dL Normal 74 - 106 [facility] Comment on above: Performed By: #### [id number] #### [address] [address] Potassium [Moles/Vol] 4.1 mmol/L Normal 3.5 - 5.1 [facility] Comment on above: Performed By: #### [id number] #### [facility],[address] [place] [address] 11445 Protein [Mass/Vol] 6.9 g/dL Normal 6.4 - 8.2 [facility] Comment on above: Performed By: #### [id number] #### [facility],[address] [place] [address] 30061 Sodium [Moles/Vol] 143 mmol/L Normal 136 - 145 [facility] Comment on above: Performed By: #### [id number] #### [facility],[address] [place] [address] 44851 Urea nitrogen [Mass/Vol] 19 mg/dL High 7 - 18 [facility] Comment on above: Performed By: #### [id number] #### [facility],[address] [place] [address] 23175 HbA1c (Bld)on 01-02-2023 Average glucose Estimated from glycated hemoglobin (Bld) [Mass/Vol] 108 mg/dL Normal [facility] Comment on above: Order Comment: Specimen Type: BLOOD SPEC IMEN Ordering Facility: [facility] Address: [address] [place] [address] Result Comment: eAG: (Estimated average glucose) is a calculated value from HgbA1c and is new accounts banking representative of the average blood glucose level in the last 2-3 month period. Performed By: #### 5 5454-3 #### [facility] CLIA [id number] [address] [place] [address] [place] HbA1c (Bld) [Mass fraction] 5.4 % Normal 4.3-5.6 [facility] Comment on above: Order Comment: Specimen Type: BLOOD SPEC IMEN Ordering Facility: [facility] Address: [address] [place] [address] Result Comment: [place] [employer] guidelines indicate that patients with HgbA1c in the range 5.7-6.4% are at increased risk for development of diabetes, and intervention by lifestyle modification may be beneficial. HgbA1c greater or equal to 6.5% is considered diagnostic of diabetes. Performed By: #### 5 5454-3 #### [facility] CLIA [id number] [address] [place] [address] [place] LIPID PROFILEon 01-02-2023 Cholesterol [Mass/Vol] 128 mg/dL Normal 0 - 240 [facility] Comment on above: Performed By: #### [id number] #### [facility],[address] [place] [address] 82444 Cholesterol in HDL [Mass/Vol] 38 mg/dL Low 40 - 60 [facility] Comment on above: Performed By: #### [id number] #### [facility],[address] [place] [address] 51812 Cholesterol in LDL [Mass/Vol] 70 mg/dL Normal 0 - 129 [facility] Comment on above: Performed By: #### [id number] #### [facility],[address] [place] [address] 31560 Cholesterol.tota l/Cholesterol in HDL [Mass ratio] 3.4 {ratio} Normal 0.0 - 5.0 [facility] Comment on above: Performed By: #### [id number] #### [facility],[address] [place] [address] 16871 Lipid 1996 panel Normal [facility] Comment on above: Result Comment: LIPID PROFILE Performed By: #### 2 91705 #### [facility],[address] [place] [address] 72144 Triglyceride [Mass/Vol] 100 mg/dL Normal 0 - 150 [facility] Comment on above: Performed By: #### [id number] #### [facility],[address] [place] [address] 67468 TSHon 01-02-2023 TSH Qn 3.36 m[IU]/L Normal 0.35 - 3.74 [facility] Comment on above: Performed By: #### [id number] #### [facility],[address] [place] [address] 53746 URINE MICROALBUMIN W/CREATIN INE, RANDOMon 01-02-2023 CREATININE UR 83.50 mg/dl Normal [facility] Comment on above: Performed By: #### [id number] #### [facility],[address] [place] [address] 88069 MICROALBUMIN UR 0.7 mg/dL Normal 0.1 - 25.1 [facility] Comment on above: Performed By: #### [id number] #### [facility],[address] [place] [address] 66678 UACR 8 mg/g Normal [facility] [facility] Comment on above: Performed By: #### [id number] #### [facility],[address] [place] [id number] VITAMIN D, 25 HYDROXYon 11-0 VitD 66.60 ng/mL Normal 30.00 - 100 [facility] Comment on above: Result Comment: 25-OHD3 indicates both e ndogenous production and supplementation. 25-OHD2 is an indicator of exogenous sources, such as diet or supplementation. Therapy is based on measurement of Total 25-OHD, with levels <20 ng/mL indicative of Vitamin D deficiency, while levels between 20 ng/mL and 30 ng/mL suggest insufficiency. Optimal levels are >=30ng/mL. Vitamin D, 25-OH D3 Not Established Vitamin D, 25-OH D2 Not Established Performed By: #### [id number] #### [facility],[address] [place] [id number] Final Surgical Pathology Rep [facility] 12-11-2022 Final Surgical Pathology Report . Pathology Reports Accession: Collected Date/Time: Received Date/Time: Pathologist: [id number] 12/03/2022 14:36 EDT 12/07/2022 08:25 EDT PHUONG LIM MD Final Surgical Pathology Report DIAGNOSIS: SCALP, OCCIPITAL LESION: - SKIN WITH COLLAGENOUS DERMAL FIBROSIS AND PATCHY MINIMAL CHRONIC INFLAMMATION, SEE COMMENT Comment: No definite cyst lining is identified. The specimen shows increased dermal collagen, with patchy areas of perivascular chronic inflammation. Immunostains were performed. S100 is negative. CD10 and CD34 show patchy positivity. The histologic features are not specific, but raise the possibility of a benign dermatofibroma. No evidence of malignancy. Clinical correlation recommended. Additional levels examined. Intradepartmental consultation: Dr. Elizondo, who concurs. CLINICAL INFORMATION: [facility] [id number]- PILAR CYST OF SCALP SPECIMEN: _A OCCIPITAL SCALP LESION GROSS DESCRIPTION: A. Received in formalin, labeled with the patients name, Case # [id number], and occipital soft tissue lesion is a square shaped bose -banks skin excision measuring 1.8 x 1.6 and excised to a depth of 0.7 cm. Skin surface is grossly unremarkable. Excision margin inked black. TS -1 Dictated by DANISH LOPEZ MICROSCOPIC DESCRIPTION: The microscopic examination is performed, except in the case of Gross Only. Electronically Signed by Pathology Report verified by [facility] PHUONG LIM Sign out Date: 12/11/2022 11:18 Performing Lab: [address] Pathology Dept Disclaimer If ancillary studies were utilized, the following Laboratory Developed Test (LDT) disclaimer will apply: Under CLIA requirements, [facility] is qualified to perform high complexity testing. For all ancillary stains, positive and negative controls stain appropriately. Performance characteristics of immunohistochemical and chromogenic in-situ hybridization tests have been determined by [facility]. These tests are used for clinical purposes, They should not be regarded as investigational or for research. Normal [facility] ([place]) Final Surgical Pathology Rep [facility] 04-14-2022 Final Surgical Pathology Report . 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 [id number] CLINICAL INFORMATION: SCREENING COLONOSCOPY SPECIMEN: A COLON - 70 CM GROSS DESCRIPTION: Received in formalin labeled with the patient's name and A is a 0.4 cm. in greatest dimension bose, glistening soft tissue fragment which is submitted in toto in 1 cassette. Dictated by TOÑO CARTY MICROSCOPIC DESCRIPTION: The microscopic examination is performed, except in the case of Gross Only. Electronically Signed by Pathology Report verified by [facility] TEX PATRICK MD Sign out Date: 04/14/2022 12:18 Performing Lab: [address] [place] [address] [place] [facility] Dept Normal [facility] ([place]) Coronavirus 2019on 0 COVID 19 Result ONLINE MARKETING DIRECTOR Normal Negative for COVID19 (SARS CoV2) by PCR. [facility] Comment on above: Result Comment: Negative for This test was developed and its performance characteristics determined by [facility] [place]. This test has been authorized by FDA under an Emergency Use Authorization (EUA). This test has been validated in accordance with the FDA's Guidance Document Policy for Diagnostics Testing in Laboratories Certified to Perform High Complexity Testing under CLIA prior to Emergency use Authorization for Coronavirus Disease 2019 during the Public Health Emergency issued on April 29, 2019. COVID19 (SARS This test was developed and its performance characteristics determined by [facility] [place]. This test has been authorized by FDA under an Emergency Use Authorization (EUA). This test has been validated in accordance with the FDA's Guidance Document Policy for Diagnostics Testing in Laboratories Certified to Perform High Complexity Testing under CLIA prior to Emergency use Authorization for Coronavirus Disease 2019 during the Public Health Emergency issued on April 29, 2019. CoV2) by PCR. This test was developed and its performance characteristics determined by [facility] [place]. This test has been authorized by FDA under an Emergency Use Authorization (EUA). This test has been validated in accordance with the FDA's Guidance Document Policy for Diagnostics Testing in Laboratories Certified to Perform High Complexity Testing under CLIA prior to Emergency use Authorization for Coronavirus Disease 2019 during the Public Health Emergency issued on April 29, 2019. Performed By: #### C OVID #### [facility] [address] [place] [address] COVID 19 Source ONLINE MARKETING DIRECTOR Normal [facility] Comment on above: Result Comment: Nasopharyngeal Corrected on 01/13 AT 0725: Previously reported as U Swab Corrected on 01/13 AT 0725: Previously reported as U Performed By: #### C OVID #### [facility] Reference [address] [place] [address] Coronavirus 2019on 0 COVID 19 Result ONLINE MARKETING DIRECTOR Normal Negative for COVID19 (SARS CoV2) by PCR. [facility] Comment on above: Result Comment: Negative for This test was developed and its performance characteristics determined by [facility] [place]. This test has been authorized by FDA under an Emergency Use Authorization (EUA). This test has been validated in accordance with the FDA's Guidance Document Policy for Diagnostics Testing in Laboratories Certified to Perform High Complexity Testing under CLIA prior to Emergency use Authorization for Coronavirus Disease 2019 during the Public Health Emergency issued on April 29, 2019. COVID19 (SARS This test was developed and its performance characteristics determined by [facility] [place]. This test has been authorized by FDA under an Emergency Use Authorization (EUA). This test has been validated in accordance with the FDA's Guidance Document Policy for Diagnostics Testing in Laboratories Certified to Perform High Complexity Testing under CLIA prior to Emergency use Authorization for Coronavirus Disease 2019 during the Public Health Emergency issued on April 29, 2019. CoV2) by PCR. This test was developed and its performance characteristics determined by [facility] [place]. This test has been authorized by FDA under an Emergency Use Authorization (EUA). This test has been validated in accordance with the FDA's Guidance Document Policy for Diagnostics Testing in Laboratories Certified to Perform High Complexity Testing under CLIA prior to Emergency use Authorization for Coronavirus Disease 2019 during the Public Health Emergency issued on April 29, 2019. COVID 19 Source ONLINE MARKETING DIRECTOR ONLINE MARKETING DIRECTOR Normal [facility] Hemoglobin A1con 08-22-2019 HbA1c (Bld) [Mass fraction] 5.3 % Normal 4.3-5.6 [facility] Comment on above: Performed By: #### HBA1C #### [facility] Laboratories Routine Lab [address] [place] [id number] HbA1c (Bld) [Mass fraction] 105 mg/dL Normal [facility] Comment on above: Performed By: #### HBA1C #### [facility] Laboratories Routine Lab [address] [place] [address] Encounters Encounter Date Encounter Type Care Provider Facility Start: 12-13-2023 End: 12-13-2023 [facility] Start: 10-29-2023 End: 10-29-2023 ambulatory PARKER Anderson [facility] Start: 08-12-2023 End: 08-12-2023 ambulatory [facility] Start: 05-24-2023 End: 05-24-2023 [facility] Start: 05-10-2023 End: 05-10-2023 ambulatory PARKER Anderson [facility] Start: 04-16-2023 End: 04-16-2023 ambulatory PARKER Anderson [facility] Start: 04-14-2023 End: 04-14-2023 ambulatory DINO Anderson [facility] Start: 01-02-2023 End: 01-02-2023 ambulatory PARKER Anderson [facility] Start: 01-02-2023 End: 01-02-2023 ambulatory PARKER Anderson [facility] Payers Date Payer Category Payer Unknown [id number] 1965 Unknown [id number] 2.16.8 [id number] 1965 Unknown [id number] 2.16.8 [id number] 1965 Unknown [id number] 2.16.8 [id number] 1965 Unknown [id number] 2.16.8 [id number] 1964 Unknown [id number] 2.16.8 [id number] 1964 Unknown [id number] 2.16.8 [id number] 1964 Unknown [id number] 2.16.8 [id number] 1964 Unknown [id number] 2.16.8 [id number] 1964 Unknown [id number] 2.16.8 [id number] 1964 Unknown [id number] 2.16.8 [id number] 1965 Unknown [id number] 2.16.8 [id number] Clinical Note 10-01-2022 Note Date & Type Note Facility 10-01-2022 Note . MICRO - Microbiology PROCEDURE: Culture Wound Aerobic with Gram Stain [*1] SOURCE: Wound (surface) BODY SITE: Neck COLLECTED DATE/TIME: 09/28/2022 07:00 EDT RECEIVED DATE/TIME: 09/28/2022 18:05 EDT START DATE/TIME: 09/28/2022 18:06 EDT FREE TEXT SOURCE: FINAL REPORTS Final Report [] Verified Date/Time/Personnel: 10/01/2022 12:32 EDT Light Staphylococcus aureus PRELIMINARY REPORTS Preliminary Report [] Verified Date/Time/Personnel: 09/30/2022 16:02 EDT Light Staphylococcus aureus NEGIN to follow Preliminary Report [] Verified Date/Time/Personnel: 09/29/2022 14:53 EDT Culture results pending. STAINS GS [] Verified Date/Time/Personnel: 09/28/2022 18:58 EDT 2+ Gram Positive Cocci SUSCEPTIBILITY RESULTS Staphylococcus aureus Antibiotic NEGIN Dilut NEGIN Inter Ampicillin >8 Beta Lactamase Positive Ampicillin/ <=8/4 Susceptible Sulbactam Azithromycin <=2 Susceptible Cefepime <=4 Susceptible Cefotaxime <=8 Susceptible Ceftaroline <=0.5 Susceptible Ceftriaxone <=4 Susceptible Ciprofloxacin <=1 Susceptible Clindamycin <=0.25 Susceptible Erythromycin <=0.25 Susceptible Imipenem <=4 Susceptible Levofloxacin <=1 Susceptible Meropenem <=2 Susceptible Oxacillin <=0.25 Susceptible Penicillin >2 Beta Lactamase Positive Piperacillin/ <=8 Susceptible Tazobactam Tetracycline <=4 Susceptible Trimethoprim/ <=0.5/9.5 Susceptible Sulfa Vancomycin 1 Susceptible Performing Locations *1: This test was performed at: [facility], [address] [place] [address], [facility] , [facility] ([place]) Summary Purpose Family History No Family History Records FoundNo Family History Records FoundNo Family History Records FoundNo Family History Records Found Advance Directives No Advanced Directives Records FoundNo Advanced Directives Records FoundNo Advanced Directives Records FoundNo Advanced Directives Records Found Additional Source Comments (unrecognized sect ion and content) No Status Records FoundNo Status Records FoundNo Status Records FoundNo Status Records Found INFORMATION SOURCE (unrecogn ized section and content) DATE CREATED AUTHOR 01/14/2020 [facility] DATE CREATED AUTHOR AUTHOR'S ORGANIZ ATION 12/13/2022 [facility] ([place]) DATE CREATED AUTHOR AUTHOR'S ORGANIZ ATION 12/18/2023 [facility] DATE CREATED AUTHOR AUTHOR'S ORGANIZ ATION 12/18/2023 [facility] FOR RECORDS PERTAINING TO PATIENTS WHO ARE OR HAVE BEEN ENROLLED IN A CHEMICAL DEPENDENCY/SUBSTANCEABUSE PROGRAM, SOME INFORMATION MAY BE OMITTED. This clinical summary was aggregated from multiple sources. Caution should be exercised in using it in the provision of clinical care. This summary normalizes information from multiple sources, and as a consequence, information in this document may materially change the coding, format and clinical context of patient data. In addition, data may be omitted in some cases. CLINICAL DECISIONS SHOULD BE BASED ON THE PRIMARY CLINICAL RECORDS. [employer] [facility]. provides no warranty or guarantee of the accuracy or completeness of information in this document.
[2023-12-22 08:34] LABS: CREATININE FINGERSTICK < 1.0 mg/dL (0.70-1.30); EGFR FINGERSTICK > 60.0000 mL/min (>60)
== END | disposition home or self-care (01) ==
LOC: MRI 07:58
PROVIDERS: PCP Internal Medicine; Referring Provider Urology; Visit Provider Urology
DX: R97.20 Elevated prostate specific antigen [PSA] (principal)
CPT/HCPCS: 72197; A9575